=== PATIENT | male | born 1970 | race Hispanic/Latino ===

== ENCOUNTER 2023-03-18 12:50 | Emergency (ER) | payer BC, OTHER ==
[~2023-03-18] VITALS: Ht 172.7 cm; Wt 95.3 kg
[~2023-03-18 12:50] MED LIST: ATENOLOL25 MG PO; TYLENOL WITH C1 EACH PO; ZANTAC300 MG
[2023-03-18 13:40] LABS: BASOPHILS % 0.4 % (0.0-1.0); EOSINOPHILS % 0.1 % (0.0-6.0); HEMATOCRIT 49.3 % (38.2-49.6); HEMOGLOBIN 16.9 g/dL (14.0-18.0); LYMPHOCYTES # (AUTO) 0.5 (1.0-3.2); LYMPHOCYTES % 5.2 % (18.0-39.1); MEAN CORPUSCULAR HEMOGLOBIN 30.4 pg (28-32); MEAN CORPUSCULAR HGB CONC 34.3 g/dL (31-35); MEAN CORPUSCULAR VOLUME 88.7 fL (81-99); MONOCYTES # (AUTO) 0.5 (0.2-0.8); MONOCYTES % 5.8 % (4.4-11.3); NEUTROPHILS # (AUTO) 8.2 (2.1-6.9); NEUTROPHILS % 88.2 % (38.7-80.0); PLATELET COUNT 251 x10e3/uL (140-360); RED BLOOD COUNT 5.56 x10e6/uL (4.3-5.7); RED CELL DISTRIBUTION WIDTH 11.9 % (11.7-14.4); WHITE BLOOD COUNT 9.31 x10e3/uL (4.8-10.8)
[2023-03-18 13:56] LABS: BILIRUBIN,URINE NEGATIVE (NEGATIVE); CLARITY,URINE CLEAR (CLEAR); COLOR,URINE YELLOW (YELLOW); GLUCOSE, URINE NEGATIVE (NEGATIVE); KETONES,URINE TRACE (NEGATIVE); LEUKOCYTE ESTERASE ,URINE NEGATIVE (NEGATIVE); NITRITE,URINE NEGATIVE (NEGATIVE); PH,URINE 5.5 (5 - 7); PROTEIN,URINE DIPSTICK NEGATIVE (NEGATIVE); URINE UROBILINOGEN 0.2 mg/dL (0.2 - 1)
[2023-03-18 14:00] LABS: ALBUMIN 4.5 g/dL (3.5-5.0); ALBUMIN/GLOBULIN RATIO 1.2 (0.8-2.0); ANION GAP 15.1 mmol/L (8-16); CALCIUM 9.7 mg/dL (8.4-10.2); CREATININE, SERUM 1.13 mg/dL (0.72-1.25); POTASSIUM 4.1 mmol/L (3.5-5.1); TOTAL PROTEIN 8.2 g/dL (6.5-8.1)
[2023-03-18] MEDS: SODIUM CHLORIDE 0.9% 1000ML 1,000 ML IV STA (14:03)
[2023-03-18] MEDS: Morphine 4mg INJECTION 4 MG/ML INJ IV STA (14:03)
[2023-03-18] MEDS: ONDANSETRON HCL INJ 2MG/ML 2ML 2 MG/ML VIAL IV STA (14:03)
[2023-03-18] MEDS: METHYLPREDNISOLONE SOD SUCC 125 MG/2ML VIAL IV STA (14:04)
[2023-03-18] MEDS: DIPHENHYDRAMINE HCL INJ 50 MG/ML VIAL IV STA (14:04)
[2023-03-18 14:08] VITALS: O2SAT 98
[2023-03-18 14:11] LABS: WBC,URINE (MAN) 0-5 /HPF (0-5)
[2023-03-18 14:12] LABS: AMORPHOUS SEDIMENT,URINE FEW (FEW)
[2023-03-18 14:14] LABS: BACTERIA,URINE MODERATE /HPF; MUCUS,URINE MODERATE (RARE)
[2023-03-18] MEDS ORDERED: IOPAMIDOL 370 MG/ML 100 ML INFUS..BTL INJ ONE (14:24)
[2023-03-18] MEDS ORDERED: ACETAMINOPHEN-1 EAC4 PO (15:56)
[2023-03-18] MEDS ORDERED: ONDANSETRON ODT4 MG PO (15:56)
[2023-03-18] MEDS ORDERED: AMOX TR-K CLV1 EAC2 PO (15:56)
== END 2023-03-18 16:47 | disposition home or self-care (01) ==
LOC: ER 13:10
DX: R10.13 Epigastric pain (principal); K52.9 Noninfective gastroenteritis and colitis, unspecified; R91.8 Other nonspecific abnormal finding of lung field; I10 Essential (primary) hypertension; R94.31 Abnormal electrocardiogram [ECG] [EKG]
CPT/HCPCS: 36415; 71046; 74177; 80053; 81001; 83690; 85025; 93005; 99284; J1200; J2270; J2405; J2930; J7030; Q9967

== ENCOUNTER 2024-05-13 15:01 | Emergency (ER) | payer BC ==
[~2024-05-13] VITALS: Ht 170.2 cm; Wt 90.7 kg
[~2024-05-13 15:01] MED LIST changes: +ACETAMINOPHEN-1 EAC4 PO; +AMOX TR-K CLV1 EAC2 PO; +ONDANSETRON ODT4 MG PO; +VIT D PO; +ZEBETA10 MG PO
[2024-05-13 15:20] VITALS: PULSE 74; RESP 18; TEMP 98.4; O2SAT 100
[2024-05-13] MEDS ORDERED: BENZONATATE100 MG PO (17:32)
== END 2024-05-13 18:00 | disposition home or self-care (01) ==
LOC: ER 16:00
DX: R05.9 Cough, unspecified (principal); J06.9 Acute upper respiratory infection, unspecified; R09.89 Other specified symptoms and signs involving the circulatory and respiratory systems; I10 Essential (primary) hypertension; E78.5 Hyperlipidemia, unspecified; Z87.19 Personal history of other diseases of the digestive system
CPT/HCPCS: 71046; 99284